=== PATIENT | male | born 1980 | race Caucasian/White ===

== ENCOUNTER 2017-05-28 01:14 | Inpatient (IN) | payer OTHER ==
[~2017-05-28] VITALS: Ht 177.8 cm; Wt 75.0 kg
[2017-05-28] VITALS (7 sets, daily range): BP systolic 139–179; BP diastolic 91–118; PULSE 70–116; RESP 17–19; TEMP 97.2–98.2; O2SAT 97–100
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
[2017-05-28] MEDS ORDERED: ceFAZolin 2 GM PREMIX 50 ML IV ONE (02:45)
[2017-05-28] MEDS ORDERED: TETANUS/DIPHTHERIA TOXOID ADULT 0.5 ML VIAL IM ONE (02:45)
[2017-05-28] MEDS ORDERED: ONDANSETRON HCL 4 MG/2 ML VIAL IV PUSH ONE (02:45)
[2017-05-28] MEDS ORDERED: MORPHINE SULFATE 4 MG/ML INJ IV PUSH ONE (02:45)
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
[2017-05-28] MEDS ORDERED: ACETAMINOPHEN 325 MG TAB PO PRN (03:15)
[2017-05-28] MEDS ORDERED: SODIUM CHLORIDE 0.9% FLUSH 10 ML FLUSH IV FLUSH PRN (03:15)
[2017-05-28] MEDS ORDERED: ONDANSETRON HCL 4 MG/2 ML VIAL IVP PRN (03:15)
[2017-05-28] MEDS ORDERED: NALOXONE HCL 0.4 MG/ML AMP IV PUSH PRN (03:15)
[2017-05-28] MEDS ORDERED: MORPHINE SULFATE 2 MG/ML INJ IV PUSH PRN (03:15)
[2017-05-28 03:29] LABS: AUTOMATED NEUTROPHIL # 10.4 TH/MM3 (1.8-7.7); BASOPHIL # 0.1 TH/MM3 (0-0.2); BASOPHIL % 0.5 % (0.0-2.0); EOSINOPHIL # 0.1 TH/MM3 (0-0.4); EOSINOPHIL % 0.9 % (0.0-4.0); HEMATOCRIT 42.4 % (39.0-51.0); HEMOGLOBIN 15.2 GM/DL (13.0-17.0); LYMPH % 13.4 % (9.0-44.0); LYMPHOCYTE # 1.8 TH/MM3 (1.0-4.8); MEAN CELL VOLUME 91.5 FL (80.0-100.0); MEAN CORPUSCULAR HEMOGLOBIN 32.7 PG (27.0-34.0); MEAN CORPUSCULAR HGB CONC 35.8 % (32.0-36.0); MEAN PLATELET VOLUME 9.2 FL (7.0-11.0); MONOCYTE # 0.8 TH/MM3 (0-0.9); NEUT % 79.2 % (16.0-70.0); PLATELET COUNT 210 TH/MM3 (150-450); RED BLOOD COUNT 4.63 MIL/MM3 (4.50-5.90); RED CELL DISTRIBUTION WIDTH 13.9 % (11.6-17.2); WHITE BLOOD COUNT 13.2 TH/MM3 (4.0-11.0)
[2017-05-28] MEDS: SODIUM CHLOR 0.9% 1000 ML INJ 1,000 ML IV SCH ×2 (03:31→13:13)
[2017-05-28 03:36] LABS: PROTHROMBIN TIME - PATIENT 10.1 SEC (9.8-11.6)
--- NOTE | 2017-05-28 03:52 | RADRPT ---
EXAM DATE/TIME: 05/28/2017 03:24 [facility] COMPARISON: HAND RIGHT COMPLETE ([id number]), May 28, 2017, 2:09. INDICATIONS : Post reduction 5th digit right hand. MEDICAL HISTORY : None. SURGICAL HISTORY : None. ENCOUNTER: Initial ACUITY: 1 day PAIN SCORE: 0/10 LOCATION: Bilateral chest FINDINGS: Three-view examination of the hand demonstrates a reduction in the amount of angulation of the 5th me tacarpal fracture. There is still mild palmar angulation the lateral view. CONCLUSION: Reduction in the amount of angulation of the 5th metacarpal fracture. Farhad Kendrick MD on May 28, 2017 at 3:49 Board Certified Radiologist. This report was verified electronically.
[2017-05-28 04:01] LABS: BICARBONATE 22.8 MEQ/L (21.0-32.0); CALCIUM 8.4 MG/DL (8.5-10.1); CREATININE 0.93 MG/DL (0.60-1.30)
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
[2017-05-28] MEDS: MORPHINE SULFATE 4 MG/ML INJ IV PUSH PRN ×3 (06:29→21:23)
[2017-05-28] MEDS: SODIUM CHLORIDE 0.9% FLUSH 10 ML FLUSH IV FLUSH SCH ×2 (09:00→21:27)
[2017-05-28] MEDS ORDERED: ONDANSETRON HCL 4 MG/2 ML VIAL IV ONE (12:00)
[2017-05-28] MEDS ORDERED: ceFAZolin INJ 1,000 MG VIAL IV ONE ×2 (12:00→22:41)
[2017-05-28] MEDS ORDERED: PROPOFOL 200 MG/20 ML AMP IV ONE (12:00)
[2017-05-28] MEDS ORDERED: LIDOCAINE HCL 1% PF 5 ML SYRINGE OTHER ONE (12:00)
[2017-05-28] MEDS ORDERED: DEXAMETHASONE SOD PHOS 4 MG/ML VIAL IV ONE (12:00)
[2017-05-28] MEDS ORDERED: GLYCOPYRROLATE 1 MG/5 ML SYRINGE IV PUSH ONE (12:00)
[2017-05-28] MEDS ORDERED: SODIUM CHLORIDE 0.9% 20 ML VIAL IV ONE (12:00)
[2017-05-28] MEDS ORDERED: SUCCINYLCHOLINE CHLORIDE 200 MG/10 ML VIAL IV ONE (12:00)
[2017-05-28] MEDS ORDERED: LACTATED RINGER'S 1000 ML INJ 1,000 ML IV ONE (12:00)
[2017-05-28] MEDS ORDERED: LIDOCAINE HCL 2% 50 ML VIAL ONE (21:42)
[2017-05-28] MEDS ORDERED: ACETAMINOPHEN 1000 MG/100 ML 100 ML IV ONE (21:54)
[2017-05-28] MEDS ORDERED: MORPHINE SULFATE 4 MG/ML INJ ONE (22:53)
[2017-05-28] MEDS ORDERED: MIDAZOLAM HCL 2 MG/2 ML VIAL ONE (22:58)
--- NOTE | 2017-05-29 00:39 | PD.ORT.PN ---
Subjective Subjective Remarks Patient reports pain controlled in PACU. Objective Vitals Vital Signs Date Time Temp Pulse Resp B/P (MAP) Pulse Ox O2 Delivery O2 Flow Rate FiO2 05/28/17 14:55 97.6 70 18 179/118 (138) 98 05/28/17 11:48 97.7 95 19 139/98 (112) 98 05/28/17 07:45 97.2 101 19 148/91 (110) 97 05/28/17 04:05 97.4 105 17 165/96 (119) 98 05/28/17 03:35 100 18 97 Room Air 05/28/17 03:27 18 05/28/17 01:48 98.2 116 18 176/108 (130) 99 I/O 05/28/17 05/28/17 05/28/17 05/29/17 05/29/17 05/29/17 07:00 15:00 23:00 07:00 15:00 23:00 Intake Total 50 ml 0 ml 800 ml Output Total 10 ml Balance 50 ml 0 ml 790 ml Intake Oral 0 ml 0 ml IV Total 50 ml Other 800 ml Output Estimated Blood Loss 10 ml # Voids 0 3 Result Diagram: 05/28/17 0300 05/28/17 0300 Other Results Laboratory Tests Test 05/28/17 03:00 Prothromb Time International Ratio 1.0 RATIO Prothrombin Time 10.1 SEC (9.8-11.6) Imaging Last 24 hours Impressions Hand X-Ray 05/28/17 0155 Signed Impressions: Service Date/Time: Sunday, May 28, 2017 02:09 - CONCLUSION: Angulated oblique fracture of the distal shaft of the 5th metacarpal bone. Farhad Kendrick MD Objective Remarks Splint in place, <2 sec capillary refill Assessment & Plan Assessment and Plan 36yM POD0 s/p I&D right hand ORIF right 5th metacarpal -Admit for 48hrs Ab, dc on oral antibiotics -Elevate hand -Nonweightbearing right hand -I am happy to followup with patient or he should obtain followup in [place] with hand surgeon within 1-2 weeks of returning home for prompt OT for range of motion Carrie Cedillo MD May 29, 2017 00:39
[2017-05-29] MEDS ORDERED: DO NOT ADM ANY ANTICOAGULANT DRUGS PRN (00:45)
--- NOTE | 2017-05-29 01:08 | RADRPT ---
EXAM DATE/TIME: 05/29/2017 00:39 [facility] COMPARISON: HAND RIGHT COMPLETE ([id number]), May 28, 2017, 2:09. INDICATIONS : Post op. Right hand fifth metacarpal ORIF. MEDICAL HISTORY : None. SURGICAL HISTORY : None. ENCOUNTER: Initial ACUITY: 1 day PAIN SCORE: Non-responsive. LOCATION: Right hand. FINDINGS: 3 views of the right hand were performed in a fiberglass splint after placement of an internal fixati on plate in the 5th metacarpal. There is anatomic alignment at the fracture line. The hardware is i ntact. No radiopaque foreign bodies. Moderate dorsal soft tissue swelling and gas. CONCLUSION: Postoperative internal fixation plate 5th metacarpal. Farhad Kendrick MD on May 29, 2017 at 1:05 Board Certified Radiologist. This report was verified electronically.
[2017-05-29] MEDS: MORPHINE SULFATE 4 MG/ML INJ IV PUSH PRN ×2 (02:09→07:58)
[2017-05-29] MEDS: SODIUM CHLOR 0.9% 1000 ML INJ 1,000 ML IV SCH (02:12)
[2017-05-29 03:00] VITALS: BP 161/89; PULSE 108; RESP 17; TEMP 97.9; O2SAT 94
[2017-05-29] MEDS ORDERED: ceFAZolin 1,000 MG/NS 100 ML IV SCH ×2 (03:00)
[2017-05-29 05:11] LABS: AUTOMATED NEUTROPHIL # 11.5 TH/MM3 (1.8-7.7); BASOPHIL % 0.2 % (0.0-2.0); HEMATOCRIT 40.9 % (39.0-51.0); HEMOGLOBIN 14.9 GM/DL (13.0-17.0); LYMPH % 3.9 % (9.0-44.0); LYMPHOCYTE # 0.5 TH/MM3 (1.0-4.8); MEAN CELL VOLUME 91.5 FL (80.0-100.0); MEAN CORPUSCULAR HEMOGLOBIN 33.4 PG (27.0-34.0); MEAN PLATELET VOLUME 9.2 FL (7.0-11.0); MONO % 0.9 % (0.0-8.0); MONOCYTE # 0.1 TH/MM3 (0-0.9); PLATELET COUNT 179 TH/MM3 (150-450); RED BLOOD COUNT 4.46 MIL/MM3 (4.50-5.90); WHITE BLOOD COUNT 12.1 TH/MM3 (4.0-11.0)
[2017-05-29 05:22] LABS: CREATININE 0.93 MG/DL (0.60-1.30)
[2017-05-29 05:49] LABS: MEAN CORPUSCULAR HGB CONC 36.4 % (32.0-36.0)
[2017-05-29 08:00] VITALS: BP 137/80; PULSE 88; RESP 19; TEMP 95.9; O2SAT 98
[2017-05-29] MEDS ORDERED: NALOXONE HCL 0.4 MG/ML AMP IV PUSH PRN (08:30)
[2017-05-29] MEDS ORDERED: ACETAMINOPHEN/HYDROcodone 325 MG/5 MG TAB PO PRN (08:30)
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
[2017-05-29] MEDS: SODIUM CHLORIDE 0.9% FLUSH 10 ML FLUSH IV FLUSH SCH (09:00)
--- NOTE | 2017-05-29 10:12 | HHI.PR ---
Subjective Remarks Follow-up hand injury. Upset because he wants to be discharged as soon as possible he leaves in [facility]. Discussed with nursing, cleared by hand surgery after third dose of IV Ancef tonight. BP and heart rate elevated secondary to agitation Objective Vitals Vital Signs Date Time Temp Pulse Resp B/P (MAP) Pulse Ox O2 Delivery O2 Flow Rate FiO2 05/29/17 08:00 95.9 88 19 137/80 (99) 98 05/29/17 03:00 97.9 108 17 161/89 (113) 94 05/29/17 01:30 98.4 109 18 149/76 (100) 97 Room Air 05/29/17 01:15 93 11 134/66 (88) 98 Nasal Cannula 2 05/29/17 01:00 96 12 134/67 (89) 98 Nasal Cannula 2 05/29/17 00:45 104 8 137/67 (90) 98 Nasal Cannula 4 05/29/17 00:40 98.0 104 8 137/69 (91) 97 Nasal Cannula 4 05/28/17 21:15 97.4 88 17 174/103 (126) 100 05/28/17 14:55 97.6 70 18 179/118 (138) 98 05/28/17 11:48 97.7 95 19 139/98 (112) 98 I/O 05/28/17 05/28/17 05/28/17 05/29/17 05/29/17 05/29/17 07:00 15:00 23:00 07:00 15:00 23:00 Intake Total 50 ml 0 ml 1214 ml 480 ml Output Total 10 ml Balance 50 ml 0 ml 1204 ml 480 ml Intake Oral 0 ml 0 ml 480 ml IV Total 50 ml 414 ml Other 800 ml Output Estimated Blood Loss 10 ml # Voids 0 3 1 # Bowel Movements 0 Result Diagram: 05/29/17 0430 05/29/17 0430 Imaging Last Impressions Hand X-Ray 05/29/17 0000 Signed Impressions: Service Date/Time: Monday, May 29, 2017 00:39 - CONCLUSION: Postoperative internal fixation plate 5th metacarpal. Farhad Kendrick MD Objective Remarks GENERAL: Well-developed and well-nourished SKIN: Dry with no lesions CARDIOVASCULAR: Regular rate and rhythm without murmurs, gallops, or rubs. RESPIRATORY: Clear to auscultation. Breath sounds equal bilaterally. No wheezes , rales, or rhonchi. GASTROINTESTINAL: Abdomen soft, non-tender, nondistended. No guarding. MUSCULOSKELETAL: Extremities without clubbing, cyanosis, or edema. No joint tenderness, effusion, or edema noted. No calf tenderness. Right hand with dry dressing NEUROLOGICAL: Awake and alert. Cranial nerves II through XII intact. Motor and sensory grossly within normal limits. Normal speech. Procedures 1. Irrigation and debridement, open fracture including skin, subcutaneous tissue, muscle and bone. 2. Open reduction internal fixation right fifth metacarpal fracture using [employer] variable angle locking plate. A/P Problem List: (1) Open fracture of fifth metacarpal bone of right hand ICD Code: S62.306B - Unspecified fracture of fifth metacarpal bone, right hand , initial encounter for open fracture Status: Acute Assessment and Plan 1. Compound fracture right hand status post repair. Continue IV Ancef will switch to p.o. Keflex, pain management with IV morphine will start Lortab counseled regarding narcotics. Hand surgery has cleared patient for discharge after third dose of IV Ancef tonight 2. Chronic low back pain/DDD. Patient not currently on any medications 3. Hyperglycemia. Monitor check A1c 4. Hypertension and tachycardia secondary to pain and agitation. Continue pain management 5. Low risk for DVT Discharge Planning Discharge patient to home Condition on discharge: Improved Regular Diet as tolerated Ad Shannan activity no driving Rx written: Lortab and Keflex Follow-up with primary care physician and hand surgery Ralph Le MD May 29, 2017 10:12
[2017-05-29] MEDS: ceFAZolin 1,000 MG/NS 100 ML IV SCH ×4 (10:13→18:31)
[2017-05-29] MEDS: ACETAMINOPHEN/HYDROcodone 325 MG/10 MG TAB PO PRN ×3 (11:08→18:31)
[2017-05-29] MEDS ORDERED: CEPH-460 PO (11:10)
[2017-05-29] MEDS ORDERED: HYDR-3583 PO (11:10)
--- NOTE | 2017-05-29 11:10 | HHI.DCPOC ---
Discharge Care Plan Diagnosis: (1) Open fracture of fifth metacarpal bone of right hand Your Health Problems Are: Incision/Drains Exercise Tolerance Goals to Promote Your Health * To prevent worsening of your condition and complications * To maintain your health at the optimal level Directions to Meet Your Goals Take your medications as prescribed Follow your dietary instruction Follow activity as directed Keep your appointments as scheduled Take your immunizations and boosters as scheduled If your symptoms worsen call your PCP, if no PCP go to Urgent Care Center or Emergency Room Smoking is Dangerous to Your Health. Avoid second hand smoke Call the 24-hour hour crisis hotline for domestic abuse at Ralph Le MD May 29, 2017 11:10
[2017-05-29 14:58] VITALS: BP 173/113; PULSE 78; RESP 18; TEMP 97.1; O2SAT 99
[2017-05-29 16:50] LABS: HEMOGLOBIN A1C 4.3 % (4.3-6.0)
== END 2017-05-29 20:26 | disposition home or self-care (01) | DRG 514 ==
LOC: NEPD 01:14 → NEDA 03:14 → N06B 04:24 → UNDODISIN 05-29 18:35
PROVIDERS: ADMIT Internal Medicine; ATTEND Internal Medicine
PROC: 0PSPXZZ Reposition Right Metacarpal, External Approach (ICD-10-PCS; 2017-05-28)
PROC: 0HQFXZZ Repair Right Hand Skin, External Approach (ICD-10-PCS; 2017-05-28)
PROC: 0PSP04Z Reposition Right Metacarpal with Internal Fixation Device, Open Approach (ICD-10-PCS; principal; 2017-05-28 22:20)
DX: S62.306B Unspecified fracture of fifth metacarpal bone, right hand, initial encounter for open fracture (principal); I10 Essential (primary) hypertension; R00.0 Tachycardia, unspecified; R73.9 Hyperglycemia, unspecified; W22.09XA Striking against other stationary object, initial encounter; M54.5 Low back pain; G89.29 Other chronic pain; F12.90 Cannabis use, unspecified, uncomplicated; Z23 Encounter for immunization
CPT/HCPCS: 12001; 26605; 73120; 73130; 80048; 83036; 85025; 85610; 85730; 90471; 90714; 96365; 96375; C1713; J0131; J0330; J0690; J1100; J2250; J2270; J2405; J3010; J7030; J7120